=== PATIENT | female | born 1945 | race Caucasian/White ===

== ENCOUNTER → 2018-11-29 08:37 | Outpatient (CLI) | payer MEDICARE, SELFPAY ==
--- NOTE | 2018-11-29 08:45 | RAD_ITS ---
STUDY: X-RAY - RIGHT KNEE REASON FOR EXAM: Female, 73 years old. Pain TECHNIQUE: 4 view(s) of the knee. COMPARISON: None. FINDINGS: There is a small joint effusion. Mild joint space narrowing with osteophyte formation due to mild osteoarthritis. No acute displaced fracture, or traumatic subluxation based on current assessment.. No abnormal soft tissue calcifications. The soft tissue structures are unremarkable. RAD/Knee 4 or More Views IMPRESSION: Mild osteoarthritis. No acute displaced fracture, or traumatic subluxation based on current assessment. Electronically Signed: Fredis Peñaloza MD at 11:28 EDT Tel [phone], Service support ,
--- NOTE | 2018-11-29 08:57 | RAD_ITS ---
STUDY: X-RAY - LUMBAR SPINE REASON FOR EXAM: Female, 73 years old. Low back pain TECHNIQUE: 5 view(s) of the lumbar spine were obtained. COMPARISON: None FINDINGS: Normal lumbar lordosis. There is no substantial scoliosis. There is a normal alignment of the vertebrae. There is multilevel endplate spondylosis of the lumbar vertebrae. There is multi-level degenerative disc disease with multi-level disc space narrowing. There is no demonstrated fracture. There is no demonstrated spondylolysis of the pars interarticulares. There is atherosclerotic calcification of the abdominal aorta without a demonstrated aneurysm. RAD/L/S Spine Min 4 Views IMPRESSION: Degenerative changes of the spine, as detailed above. No acute displaced fracture, or traumatic subluxation based on current assessment. Electronically Signed: Fredis Peñaloza MD at 11:23 EDT Tel [phone], Service support ,
[2018-11-29 10:00] LABS: Color, Urine Yellow (Yellow); Glucose, Dipstick Normal (Normal); Ketone-Dipstick Negative (Negative); Leukocyte Esterase-Dipstick 100 /ul (Negative); Nitrite-Dipstick Negative (Negative); Occult Blood-Urine 10 /ul (Negative); Protein-Dipstick 30 mg/dl (Negative); Urine Bilirubin Dipstick Negative (Negative); Urine Clarity Sl. Cloudy (Clear); Urine Urobilinogen Normal (Normal)
[2018-11-29 10:02] LABS: Erythrocyte Sedimentation Rate 14 mm/hr (0-30)
[2018-11-29 10:04] LABS: Absolute Lymphocyte Count 1.25 X10^3/uL (0.83-4.51); Absolute Neutrophil Count 2.8 X10^3/uL (2.0-7.7); Basophil# 0.03 X10^3/uL; Basophil% 0.7 % (0-1); Eosinophil# 0.07 X10^3/uL; Eosinophils% 1.5 % (0-5); Hematocrit 36.8 % (37-47); Hemoglobin 12.4 g/dL (12.0-15.0); Lymphocyte # 1.25 X10^3/ul (4.0); Lymphocyte % 27.5 % (19-41); Mean Corp Hgb Conc 33.7 g/dL (32-36); Mean Corpuscular Volume 95.1 fL (81-99); Mean Platelet Vol. 9.1 fl (6.2-12.0); Monocyte% 8.8 % (0-10); NRBC Flagged by Analyzer 0 % (0-5); Neutrophil # 2.78 X10^3/uL (2.7-7.7); Neutrophil % 61.3 % (47-70); Platelet Count 202 K/mm3 (150-450); RBC Distribution Width CV 12.1 % (11.6-14.6); RBC Distribution Width SD 41.7 fl (35.1-43.9); Red Blood Count 3.87 M/mm3 (4.2-5.4); White Blood Count 4.5 K/mm3 (4.4-11.0)
[2018-11-29 10:22] LABS: Bacteria 1+ /hpf (None Seen); Red Blood Cells-Urine 0-5 SEEN /hpf (0-5); Squamous Epithelial Cells - UA 5-10 SEEN /hpf (5-10); White Blood Cells 10-25 SEEN /hpf (0-5)
[2018-11-29 10:23] LABS: Mucous, Urine 1+ /hpf (<or=2+); Vitamin B12 596 pg/mL (211-911); Vitamin D,25 Hydroxy 27.9 ng/mL (29.95-100.01)
[2018-11-29 10:41] LABS: ALB/GLOB Ratio 0.9 RATIO (0.9-2.4); AST(SGOT) 28 U/L (15-37); Alanine Aminotransfer ALT/SGPT 41 U/L (13-56); Albumin, Serum 3.6 g/dL (3.2-5.0); Alkaline Phosphatase 102 U/L (45-117); Anion Gap 6 (5-15); BUN 14 mg/dL (7-18); BUN/Creat Ratio 16.8 RATIO (10-20); CPK Total, Creatine Kinase 122 U/L (26-192); CRP < 2.90 mg/L (0.0-3.0); Calcium,Total 8.7 mg/dL (8.5-10.1); Chloride 107 mmol/L (98-107); Cholesterol 140 mg/dL (200); Creatinine, Serum 0.83 mg/dL (0.55-1.02); EST Glomerular Filtration Rate 72 mL/min (>60); Est Glom Filt Rate - Afr Amer 87 mL/min (>60); Glucose 135 mg/dL (74-106); High Density Lipoprotein 41 mg/dL; Microalbumin,Random Urine 15.1 mg/L (NO RANGE EST.); Microalbumin:Creatinine Ratio 6.7 mg/g CRE (<30 mg/g CRE); Potassium 3.8 mmol/L (3.5-5.1); Protein, Total 7.6 g/dL (6.4-8.2); Sodium Level 140 mmol/L (136-145); T4 Free Direct 0.81 ng/dL (0.76-1.46); Thyroid Stim Hormone (TSH) 4.19 uIU/mL (0.358-3.74); Triglycerides 220 mg/dL; Very Low Density Lipoprotein 44 mg/dL (5-40)
[2018-11-29 11:07] LABS: Hemoglobin A1c 7.1 % (4.2-6.3)
== END ==
PROVIDERS: Family Provider Family Medicine; PCP Family Medicine; Referring Provider Family Medicine; Visit Provider Family Medicine
DX: E11.9 Type 2 diabetes mellitus without complications (principal); E78.5 Hyperlipidemia, unspecified; M81.0 Age-related osteoporosis without current pathological fracture; R79.89 Other specified abnormal findings of blood chemistry; Z51.81 Encounter for therapeutic drug level monitoring; R53.83 Other fatigue; R53.1 Weakness; M54.9 Dorsalgia, unspecified; M25.561 Pain in right knee
CPT/HCPCS: 36415; 72110; 73564; 80053; 80061; 81001; 82043; 82306; 82550; 82570; 82607; 83036; 84439; 84443; 85025; 85652; 86140

== ENCOUNTER → 2018-12-18 06:24 | Outpatient (CLI) | payer MEDICARE, SELFPAY ==
--- NOTE | 2018-12-21 15:27 | STRESSREP_ITS ---
Stress Test Report Date: 12/18/2018 Procedure: Pharmacologic stress nuclear imaging study Indications: Dyspnea on exertion Consent: Per the patient Procedure: The patient underwent pharmacologic (Regadenoson) evaluation with a peak heart rate of 94 beats per minute (63 %predicted maximal heart rate) and a peak blood pressure of 130/78 mmHg. The baseline ECG demonstrated normal sinus rhythm nonspecific ST-T changes. EKG during lexiscan infusion revealed no significant change from baseline. EKG post infusion revealed no significant change from baseline [There were no cardiac dysrhythmias pretest, during pharmacologic infusion, or recovery]. [There was no complaint of chest discomfort during pharmacologic infusion or recovery]. The examination was discontinued secondary to completion of protocol. Impression: 1. Lexiscan stress test test is negative for Lexiscan infusion induced EKG changes of ischemia. 2. Lexiscan stress test test is negative for Lexiscan infusion induced chest pain. 3. Results of the nuclear portion of the test is as below Myocardial perfusion imaging study: Technique: The patient was injected with 11.4 millicuries of technetium 99m Cardiolite and subsequently rest SPECT Cardiolite nuclear imaging was obtained in the horizontal long, vertical long, and short axis views. The patient underwent pharmacologic (Regadenoson) evaluation. Please see above for details. The patient was injected with [34.5] millicuries of technetium 99m Cardiolite and subsequently stress SPECT Cardiolite nuclear imaging was obtained in the horizontal long, vertical long, and short axis views. A gated Cardiolite study at peak stress was obtained. Interpretation: Rest and stress SPECT Cardiolite nuclear imaging status post realignment, normalization, and attenuation correction demonstrate normal myocardial radioisotope uptake on rest and stress images. Gated images reveal no significant regional wall motion abnormalities. The reported LVEF is 67 %. Impression: 1. There is no evidence of significant ischemia or infarction. 2. Estimated ejection fraction is 67%. This note was generated with [employer] software. It may contain incorrect words, spelling, and punctuation that were not noted in checking the note before signing.
== END ==
PROVIDERS: Family Provider Family Medicine; PCP Family Medicine; Referring Provider Family Medicine; Visit Provider Family Medicine
DX: R07.9 Chest pain, unspecified (principal); R06.00 Dyspnea, unspecified; R53.83 Other fatigue
CPT/HCPCS: 78452; 93017; A9500; A4216; J2785

== ENCOUNTER 2019-03-24 07:16 | Emergency (ER) | payer MEDICARE, SELFPAY ==
[2019-03-11 13:53] VITALS: BMI 36.7
[2019-03-24 07:17] VITALS: BP 165/81; PULSE 85; RESP 20; TEMP 36.6; O2SAT 97; BMI 37.3
[2019-03-24 07:40] VITALS: BP 165/81; PULSE 85; RESP 20; TEMP 36.6; O2SAT 97
--- NOTE | 2019-03-24 07:41 | RAD_ITS ---
STUDY: X-RAY CHEST REASON FOR EXAM: Female, 73 years old. Chest pain and cough. TECHNIQUE: 2 view chest. COMPARISON: None. FINDINGS: No evidence of pneumonia, pulmonary edema, pneumothorax or pleural effusion. Cardiac silhouette, hilar and mediastinal contours with no acute findings. Heart size normal. Atherosclerosis of the thoracic aorta. Degenerative osseous changes with no acute osseous abnormality. RAD/Chest PA and Lateral IMPRESSION: No acute findings. Electronically Signed: Aaron Barrios, at 9:15 EST Tel , Service support ,
[2019-03-24 07:55] LABS: Bacteria 0 SEEN /hpf (None Seen); Mucous, Urine 0 SEEN /hpf (<or=2+); Red Blood Cells-Urine 0 SEEN /hpf (0-5)
[2019-03-24 07:57] LABS: Color, Urine Yellow (Yellow); Glucose, Dipstick 100 mg/dl (Normal); Ketone-Dipstick Negative (Negative); Leukocyte Esterase-Dipstick 500 /ul (Negative); Nitrite-Dipstick Negative (Negative); Occult Blood-Urine Negative /ul (Negative); Protein-Dipstick 30 mg/dl (Negative); Specific Gravity, Urine 1.015 (1.002-1.030); Urine Bilirubin Dipstick Negative (Negative); Urine Clarity Clear (Clear); Urine Urobilinogen Normal (Normal)
[2019-03-24 08:05] LABS: Squamous Epithelial Cells - UA 0-5 SEEN /hpf (5-10); White Blood Cells 5-10 SEEN /hpf (0-5)
--- NOTE | 2019-03-24 08:08 | ED.DCSUM_ITS ---
History of Present Illness Chief Complaint: Cough Informant: Patient Onset: Days Maximum Severity: Mild Narrative: Dry cough for days seen at [facility] [place] started on prednisone and inhaler reports she has persistence of the cough, and now she has right ear pain no nausea or vomiting no fever no shortness of breath no orthopnea or PND she has diabetes is well controlled, she has no history of NH PE or DVT when she is not coughing she states she feels baseline Past Medical History - Allergies and Home Meds Allergies/Adverse Reactions: Allergies No Known Allergies Allergy (Verified 03/24/19 07:16) Primary Care Physician: Luis Alberto Mccarty DO [Primary Care Provider] - Past Medical History: - - Diabetes and as above Smoking Status: Unknown if ever smoked Review of Systems General: Denies: Chills, Fever, Sweats Eyes: Denies: Visual changes - bilaterally, Diplopia ENT: Reports: Right ear pain, Rhinorrhea. Denies: Sore throat Cardiovascular: Denies: Chest pain, Palpitations Respiratory: Reports: Cough. Denies: Dyspnea, Dyspnea on exertion Gastrointestinal: Denies: Abdominal pain, Nausea, Vomiting, Diarrhea, Melena, Hematochezia Genitourinary: Denies: Dysuria, Hematuria, Frequency Musculoskeletal: Denies: Back pain, Extremity Pain Skin: Denies: Rash, Wounds Neurological: Denies: Headache, Weakness, Numbness Physical Exam Vital Signs/Narrative: Vital Signs Temp Pulse Resp BP Pulse Ox 03/24/19 07:40 97.8 F 85 20 H 165/81 H 97 03/24/19 07:17 97.8 F 85 20 H 165/81 H 97 General: Well nourished, Well developed, No Acute Distress Head: Normocephalic, Atraumatic Eyes: Perrl, EOMI ENT: Moist mucous membranes, No rhinorrhea, - - She does have redness around involving the right TM does have a dry harsh cough here Neck: Supple, Nontender, - Cardiovascular: Regular rate, Regular rhythm, No murmurs Respiratory: No distress, CTA bilaterally, Chest nontender Abdomen: Soft, Nontender, Nondistended, Normal bowel sounds Back: Nontender, Normal Inspection Extremities: Nontender, No edema Skin: Normal color, No rash Neurological: Alert, Oriented x3, Cranial nerves II-XII grossly intact, Normal Strength, Normal Sensation Psychological: Normal affect, Normal Mood Diagnostic/Tx/Re-eval - Medical Decision Making Her vital signs are within normal range her pulse ox is 98% on room air she is resting company in the bed she does have a dry cough she appears to have otitis media and the ear pain began this morning she is been coughing since about she thinks, at this time chest x-rays obtained its unremarkable explained above to her she will be started on Levaquin which should assist with the ear and if she has a bacterial cause to her cough and she will follow-up with her outpatient providers tomorrow, she will continue all of the other medications she was given the other day by her outpatient providers and return for change in symptoms she is comfortable with this plan, please note she did not receive flu vaccination this year Home stable Final impression right otitis media, URI with cough ED Disposition - Plan for ED Patient: Diagnosis: Otitis media Instructions: BRONCHITIS, Antiobiotic Treatment (Adult), Otitis Media (Middle- Ear Infection) in Adults Prescriptions: levoFLOXacin tablet [Levaquin tablet] 750 mg PO DAILY #7 tab Prescription Printed Referrals: Luis Alberto Mccarty DO [Primary Care Provider] -
[2019-03-24] MEDS: levoFLOXacin 750 MG Tablet PO (08:23)
[2019-03-24 08:40] VITALS: BP 155/71; PULSE 78; RESP 16; TEMP 36.8; O2SAT 98
[2019-03-24 09:00] VITALS: BP 155/71; PULSE 78; RESP 16; TEMP 36.8; O2SAT 98
== END 2019-03-24 09:26 | disposition home or self-care (01) ==
LOC: ED 07:49
PROVIDERS: Emergency Provider Emergency Medicine; Family Provider Family Medicine; PCP Family Medicine
DX: H66.91 Otitis media, unspecified, right ear (principal); E11.9 Type 2 diabetes mellitus without complications; R05 Cough
CPT/HCPCS: 71046; 81001; 99283; A4216

== ENCOUNTER → 2019-05-23 12:55 | Outpatient (CLI) | payer MEDICARE, SELFPAY ==
[2019-05-10 11:51] VITALS: BMI 37.3
--- NOTE | 2019-05-23 12:55 | MRI_ITS ---
STUDY: MRI RIGHT KNEE REASON FOR EXAM: Knee pain for one year, evaluate meniscal tear. TECHNIQUE: Standardized fat and water weighted pulse sequences were obtained in all 3 orthogonal planes. COMPARISON: Radiographs 11/29/2018. FINDINGS: There is a complex tear of the posterior horn/body of the medial meniscus (proton density sagittal images 25-33; proton density coronal images 15-18) with a small displaced fragment in the medial gutter (T2 coronal images 18, 19). There is peripheral subluxation of the medial meniscus. There is arthrosis of the medial femorotibial compartment with chondral thinning (T2 coronal image 17). There is mild subchondral bone edema of the medial tibial plateau (T2 coronal images 15-19), a stress phenomenon. Normal medial collateral ligamentous complex (MCL). Normal distal semimembranosus, gracilis and semitendinosus tendons. Normal lateral meniscus. Normal hyaline cartilage of the lateral femorotibial compartment. Normal lateral femoral condyle and tibial plateau. Normal proximal tibiofibular articulation. Normal lateral collateral (fibular) ligament. Normal popliteus tendon. Normal biceps femoris tendon. There is mild intrasubstance mucoid degeneration of the anterior cruciate ligament (T2 axial image 14). Normal posterior cruciate ligament (PCL). Normal congruent patellofemoral articulation. Normal hyaline cartilage of the patellofemoral compartment. Normal medial and lateral patellar retinaculum. Normal quadriceps tendon. Normal patellar tendon. Normal Hoffa''s fat pad. There is a minimal volume of fluid in the knee joint. There is a small popliteal cyst (T2 sagittal images 15-17). There is a small ganglion cyst adjacent to the origin of the lateral gastrocnemius (T2 sagittal image 8) measuring 0.7 cm in length. There is mild edema in the subcutis adipose space. The otherwise visualized osseous structures are unremarkable. MRI/Lower Ext Joint Only (Routine) IMPRESSION: Medial meniscal tear. Arthrosis of the medial femorotibial compartment. Mild subchondral bone edema of the medial tibial plateau, a stress phenomenon. Small popliteal cyst. Small ganglion cyst adjacent to the origin of the lateral gastrocnemius. Electronically Signed: Chris Novak MD at 14:11 EST Tel , Service support ,
== END ==
PROVIDERS: PCP Family Medicine; Referring Provider Orthopaedic Surgery; Visit Provider Orthopaedic Surgery
DX: S83.206A Unspecified tear of unspecified meniscus, current injury, right knee, initial encounter (principal)
CPT/HCPCS: 73721

== ENCOUNTER → 2019-07-13 09:04 | Outpatient (CLI) | payer MEDICARE, SELFPAY ==
[2019-06-12 13:29] VITALS: BMI 37.3
[2019-07-13 09:54] LABS: AST(SGOT) 24 U/L (15-37); Alanine Aminotransfer ALT/SGPT 32 U/L (13-56); Albumin, Serum 3.7 g/dL (3.2-5.0); Alkaline Phosphatase 117 U/L (45-117); Anion Gap 5 (5-15); BUN 14 mg/dL (7-18); BUN/Creat Ratio 16.9 RATIO (10-20); Calcium,Total 9.7 mg/dL (8.5-10.1); Chloride 104 mmol/L (98-107); Cholesterol 134 mg/dL (200); Creatinine, Serum 0.83 mg/dL (0.55-1.02); EST Glomerular Filtration Rate 72 mL/min (>60); Est Glom Filt Rate - Afr Amer 87 mL/min (>60); Globulin 3.8 g/dL (2.2-4.2); Glucose 156 mg/dL (74-106); High Density Lipoprotein 45 mg/dL; Potassium 4.3 mmol/L (3.5-5.1); Protein, Total 7.5 g/dL (6.4-8.2); Sodium Level 140 mmol/L (136-145); T4 Free Direct 0.75 ng/dL (0.76-1.46); Triglycerides 208 mg/dL; Very Low Density Lipoprotein 42 mg/dL (5-40)
[2019-07-13 10:51] LABS: Hemoglobin A1c 7.4 % (4.2-6.3)
== END ==
PROVIDERS: PCP Family Medicine; Referring Provider Family Medicine; Visit Provider Family Medicine
DX: E11.51 Type 2 diabetes mellitus with diabetic peripheral angiopathy without gangrene (principal); I70.0 Atherosclerosis of aorta; E78.5 Hyperlipidemia, unspecified; R79.89 Other specified abnormal findings of blood chemistry
CPT/HCPCS: 36415; 80053; 80061; 83036; 84439; 84443

== ENCOUNTER → 2019-08-08 13:56 | Outpatient (CLI) | payer MEDICARE, SELFPAY ==
[2019-06-12 13:29] VITALS: BMI 37.3
[2019-08-07 14:37] VITALS: BMI 37.3
--- NOTE | 2019-08-08 13:57 | CT_ITS ---
STUDY: CT SCAN LOWER EXTREMITY RIGHT REASON FOR EXAM: Female, 74 years old. SHRADDHA KNEE jimena RADIATION DOSAGE (If Supplied By Facility): CTDIvol = ( 30.70 ) mGy, DLP = ( 1886.87 ) mGycm. Individualized dose optimization techniques were used for this CT.? TECHNIQUE: Multiple axial tomographic images of the hip joint, knee joint and ankle joint were obtained for the SHRADDHA protocol. COMPARISON: None. FINDINGS: There is a moderate degree of joint space narrowing and osteoarthritis of the right hip joint. There is evidence of a spur along the inferior medial aspect of the acetabulum. There is also evidence of calcification overlying the greater trochanter suggestive of a tendinitis. There is a marked degree of the joint space narrowing of the medial compartment of the knee joint. No significant joint effusion is seen. At the level of the ankle joint, there is evidence of screw fixation of a remote medial malleolar fracture. There is good alignment. There is also evidence of a spur at insertion of the Achilles tendon as well as the plantar surface of the calcaneus. CT/Extremity Lower without Contra IMPRESSION: Marked degree of joint space narrowing involving the medial compartment of the knee joint as described. Degenerative changes of the right hip joint. Prior screw fixation of a medial malleolar fracture. Electronically Signed: Eduardo Antunez, at 15:40 EDT , Service support ,
== END ==
PROVIDERS: PCP Family Medicine; Visit Provider Orthopaedic Surgery
DX: M17.11 Unilateral primary osteoarthritis, right knee (principal)
CPT/HCPCS: 73700

== ENCOUNTER 2019-08-20 09:07 | Day surgery (SDC) | payer MEDICARE, SELFPAY ==
[2019-06-12 13:29] VITALS: BMI 37.3
[2019-08-13 08:24] VITALS: BMI 37.3
--- NOTE | 2019-08-14 12:25 | EKG12_ITS ---
Test Reason : PRE OP Blood Pressure : / mmHG Vent. Rate : 075 BPM Atrial Rate : 075 BPM P-R Int : 122 ms QRS Dur : 080 ms QT Int : 390 ms P-R-T Axes : 038 -03 039 degrees QTc Int : 435 ms Normal sinus rhythm Normal ECG Confirmed by RANDOLPH ALEXANDER ([id number]), assignment desk editor GENESIS BETTENCOURT ([id number]) on 08/19/2019 2:47:44 PM Referred By: Sotero Holden Confirmed By:RANDOLPH ALEXANDER
[2019-08-14 13:13] LABS: Hematocrit 38.8 % (37-47); Hemoglobin 12.6 g/dL (12.0-15.0); Mean Corp Hgb Conc 32.5 g/dL (32-36); Mean Corpuscular Hgb 31.5 pg (27.0-32.0); Mean Platelet Vol. 9.3 fl (6.2-12.0); Platelet Count 211 K/mm3 (150-450); RBC Distribution Width CV 11.4 % (11.6-14.6); RBC Distribution Width SD 40.4 fl (35.1-43.9); White Blood Count 5.2 K/mm3 (4.4-11.0)
[2019-08-14 13:44] LABS: Magnesium 2.1 mg/dL (1.6-2.6)
[2019-08-14 16:16] LABS: M R Staph aureus DNA By PCR Negative (Negative); Probe Check PASS; Specimen Processing Control PASS
[2019-08-20] VITALS (7 sets, daily range): BP systolic 101–119; BP diastolic 56–107; PULSE 64–741; RESP 16; TEMP 36.1–36.3; O2SAT 98–100; BMI 37.7
[2019-08-20 09:45] LABS: Magnesium 1.9 mg/dL (1.6-2.6)
[2019-08-20] MEDS: Celecoxib 200 MG Capsule 400 MG PO (09:49)
[2019-08-20] MEDS: Gabapentin 600 MG Tablet PO (09:50)
[2019-08-20] MEDS: Scopolamine 1mg/72hr Patch 1 PATCH TRANSDERM. (09:50)
[2019-08-20] MEDS: Acetaminophen 500 MG Tablet 1000 MG PO ×2 (09:50→14:34)
[2019-08-20] MEDS: Lactated Ringers 1,000 ML 100 ML IV (09:51)
[2019-08-20] MEDS: Cefazolin 2 GM in 0.9% Normal Saline 100 ML IV (10:24)
[2019-08-20 10:50] LABS: Bedside Glucose 132 mg/dL (70-110)
[2019-08-20] MEDS: Lactated Ringers 1,000 ML 125 ML IV (12:00)
[2019-08-20] MEDS: Bupivacaine Mpf 0.5% 30 ML VIAL (12:42)
[2019-08-20] MEDS: Epinephrine (1 mg/ml) 1 MG/ML VIAL (12:42)
[2019-08-20] MEDS: Betamethasone/Betamethasone 30 MG/5 ML Vial (12:42)
--- NOTE | 2019-08-20 13:28 | RAD_ITS ---
STUDY: X-RAY - RIGHT KNEE REASON FOR EXAM: Female, 74 years old. Post op TECHNIQUE: AP and lateral view(s) of the knee. COMPARISON: Comparison is made with prior study dated November 29, 2018. FINDINGS: The patient is status post medial hemiarthroplasty as well as prosthetic patella. There is good alignment. Postoperative soft tissue changes. RAD/Knee 1 or 2 Views IMPRESSION: Status post medial hemiarthroplasty as well as prosthetic replacement of the patella. There is good alignment. Postoperative soft tissue changes. Electronically Signed: Eduardo Antunez, at 14:21 EDT , Service support ,
--- NOTE | 2019-08-20 13:40 | HP.PCM_ITS ---
History and Physical Date of Admission: 08/20/19 Intake Intake Visit Reasons: right knee Chief Complaint: right knee Accompanied by: self Is patient in pain?: Yes Pain scale (1-10): 5 Allergies No Known Allergies Allergy (Verified 03/24/19 07:16) Medications atorvastatin 40 mg tablet 40 mg PO DAILY #90 tab 01/07/19 [History Confirmed 08/09/19] blood sugar diagnostic See Rx Instructions .ROUTE .MEDSUPPLY #400 ea 01/07/19 [History Confirmed 08/09/19] denosumab 60 mg/mL subcutaneous syringe SC #1 ml 01/07/19 [History Confirmed 08/09/19] lisinopril 2.5 mg tablet 2.5 mg PO DAILY #90 tab 01/07/19 [History Confirmed 08/09/19] paroxetine HCl 20 mg tablet 20 mg PO DAILY #90 tab 01/07/19 [History Confirmed 08/09/19] pramipexole 0.5 mg tablet 0.5 mg PO DAILY #90 tab 01/07/19 [History Confirmed 08/09/19] Benzonatate 100 mg PO TID PRN 03/24/19 [History Confirmed 08/09/19] Calcium Carbonate/Vitamin D3 [Calcium 600 + Vit D Tablet] 1 tab PO DAILY 03/24/19 [History Confirmed 08/09/19] levofloxacin 750 mg tablet 750 mg PO DAILY tab 06/12/19 [History Confirmed 08/09/19] albuterol sulfate 90 mcg/actuation aerosol inhaler 2 puff INHALATION Q6H PRN 08/01/19 [History Confirmed 08/09/19] aspirin 81 mg tablet,delayed release 81 mg PO DAILY 08/01/19 [History Confirmed 08/09/19] calcium carbonate 600 mg calcium (1,500 mg) tablet 600 mg PO DAILY 08/01/19 [History Confirmed 08/09/19] metformin 500 mg tablet 500 mg PO BID #180 tab 08/01/19 [History Confirmed 08/09/19] multivitamin 1 tab PO DAILY 08/01/19 [History Confirmed 08/09/19] ropinirole 0.5 mg tablet 0.5 mg PO DAILY 08/01/19 [History Confirmed 08/09/19] PFS Medical History (Updated 08/01/19 @ 11:16 by Regina Somers) Allergic rhinitis (Acute) DDD (degenerative disc disease), lumbar (Acute) DM w/o complication type II (Acute) Fatigue (Acute) Obesity (BMI 30.0-34.9) (Acute) Osteoporosis (Acute) Other and unspecified hyperlipidemia (Acute) Restless leg syndrome (Acute) Surgical History (Updated 08/01/19 @ 11:16 by Regina Somers) History of shoulder surgery (Resolved) Myringotomy tube(s) status (Resolved) Social History (Updated 08/09/19 @ 12:[address] Sotero Holden DO) Smoking Status: Never smoker alcohol intake: current alcohol intake frequency: holidays/special occasions only substance use type: does not use caffeine: Yes what type of physical activity do you participate in: none HPI right knee: Details: Parts of this documentation were recorded by a scribe, this documentation accurately reflects the service provided and the decisions made by Sotero lal DO 08/09/19 0755. TICO GONZALES is a 74 year old F here today for F/U on right knee pain. She is here for ROM check and to discuss right TKA. Patient has near full extension and is around 110 with flexion. Denies numbness, tingling or other associated symptoms. Continues to have mdial sided knee pain. States that this effects her ADLs. She can not stand for long periods, she is unable to walk long distances and she has difficulty with stairs. Her A1C was 7.4 on 07/13/2019. Her pain has been getting progressively worse and has been affecting her activities of daily living cannot do anything without pain Ortho Exam Right Knee Skin/Wound: No erythema, No ecchymosis, No swelling Homans Sign: No Knee ROM: No ROM-Extension -20 to 0, No ROM-Flexion 0-140 (110) Examination: Yes Med jt line tenderness, No Lat jt line tenderness Stability: NML: Anterior Drawer, NML: Posterior Drawer Patella Translation: 1 Apprehension with Lateral Translation: No KNEE: Some discomfort with patellar grind 8 DEGREE FLEXION CONTRACTURE a few punctate petechi on her left foot. Left Knee Patella Translation: 1 Supplemental Info 11/29/2018 x-ray right knee: mild to moderate medial joint space narrowing mild spurring medial and lateral compartment mild patellofemoral spurring 11/29/2018 x-ray lumbar spine: Multilevel endplate spondylosis of the lumbar spine multilevel degenerative disc disease mild Assessment & Plan Problems 1. Unilateral primary osteoarthritis, right knee M17.11 Plan Patient educated that her ROM has improved slightly since the last visit therefore she will be ok to have a partial knee replacement. Reviewed the pre- operative plans with the patient. Risks and benefits of the procedure were fully explained, including but not limited to infection, neurovascular injury, continued pain, arthritis, stiffness, need for further surgery, re-injury, DVT, PE, general risks of anesthesia, and loss of limb or life. Educated that if she has the partial the lateral side can eventually develop OA. The patient understands all the risks and does wish to proceed with written consent. Patient wishes to proceed with right knee unicompartmental medial knee arthroplasty vs bicompartmental knee arthroplasty vs total knee arthroplasty to be determined intra-operatively. Specifically reviewed the risk of COVID 19 infection and possible consequences of ventilation and . Due to the severity and progre ssion of symptoms and affecting her activities of daily living she does wish to proceed. this will be scheduled as a same-day surgery she understands this feels she has enough help at home. We have her set up for immediate outpatient physical therapy. Follow up in or sooner if pain, swelling, numbness or associated symptoms, or concerns develop. All questions answered. Patient in agreement of plan. Coding Level of Care Code Off vis,est,level 3 Diagnoses Unilateral primary osteoarthritis, right knee M17.11 I have re-examined the patient. There are no clinical changes since date of exam Essential Procedure Criteria Procedure Essential: Yes Criteria Note: severe worsening symptoms affecting activities of daily living Risk to Patient if Procedure Delayed: Presence of severe symptoms causing an inability to perform ADL's
--- NOTE | 2019-08-20 13:42 | DCINST_ITS ---
Discharge Diet: No Restrictions Additional Instructions: Ice and elevate next week while not ambulating. Encourage ambulation weightbea ring as tolerated. Encourage FULL knee extension and flexion 1 time EVERY time you get up and down and MULTIPLE times per day. Begin showering postop day #3. Remove the dressing prior to shower gently wash with warm water and antibacterial soap then pat dry place ABD pad and ANU hose over top. This is to be done daily. do not submerge for 3 weeks. If not showering daily must clean incision and change dressing daily. Do not allow animals near incision keep clean. Follow anticoagulation recommendations. Start physical therapy as directed first physical therapy session is 08/23/2019 at 2:00 at the [facility] [place]. call Dr. Holden with any concerns. Allergies/Adverse Reactions: Allergies No Known Allergies Allergy (Verified 08/13/19 10:49) Medications to take at Discharge atorvastatin 40 mg tablet 40 mg PO DAILY #90 tab 01/07/19 denosumab 60 mg/mL subcutaneous syringe 60 mg SC QMONTH #1 ml 01/07/19 lisinopril 2.5 mg tablet 2.5 mg PO DAILY #90 tab 01/07/19 paroxetine HCl 20 mg tablet 20 mg PO DAILY #90 tab 01/07/19 pramipexole 0.5 mg tablet 0.5 mg PO DAILY #90 tab 01/07/19 Calcium Carbonate/Vitamin D3 [Calcium 600 + Vit D Tablet] 1 tab PO DAILY 03/24/19 multivitamin 1 tab PO DAILY 08/01/19 Acetaminophen/Diphenhydramine [Tylenol Pm Ex-Strength Caplet] 1 ea PO QHS 08/13/19 metformin 500 mg tablet 500 mg PO BID #180 tab 08/13/19 omeprazole 20 mg capsule,delayed release 20 mg PO DAILY PRN 08/13/19 Acetaminophen [Tylenol Extra Strength] 1,000 mg PO Q6H PRN #100 tab 08/20/19 Apixaban [Eliquis] 2.5 mg PO BID 15 Days #30 tab 08/20/19 Ondansetron HCl [Zofran] 4 mg PO Q6H PRN PRN 5 Days #20 tab 08/20/19 Oxycodone [Oxyir] 5 mg PO Q4H PRN PRN #60 tab 08/20/19 The following prescriptions were given: Apixaban [Eliquis] 2.5 mg PO BID 15 Days #30 tab Transmission Status: Sent to [facility] Oxycodone [Oxyir] 5 mg PO Q4H PRN PRN #60 tab PRN Reason: Pain Score 6-10/10 Transmission Status: Received by [facility] Acetaminophen [Tylenol Extra Strength] 1,000 mg PO Q6H PRN #100 tab Transmission Status: Sent to [facility] Ondansetron HCl [Zofran] 4 mg PO Q6H PRN PRN 5 Days #20 tab PRN Reason: Nausea Transmission Status: Sent to [facility] Primary Care Physician: Luis Alberto Mccarty DO [Primary Care Provider] - Test Results: Test results from this visit will be discussed in further detail at your follow- up appointment, if applicable. Please Follow Up With: Sotero Holden DO - 2 weeks
--- NOTE | 2019-08-20 13:44 | OP.PCM_ITS ---
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 CT robotic assisted medial unicompartmental knee arthroplasty. 2. CT robotic assisted patellofemoral arthroplasty Implants Vinicio Anesthesia: Spinal with adductor canal block EBL: 75 Tourniquet time 78 minutes at 300 mmHg Complications: None Condition: Stable to PACU Indication for procedure: 74-year-old female patient with ongoing DJD was failed conservative treatment who did have MRI evidence of medial compartment arthritis and to a lesser degree patellofemoral arthritis she has failed conservative treatment and wished to proceed with elective knee arthroplasty. We reviewed risk and benefits of you knee bicompartmental or total knee arthroplasty. risk benefits and alternatives were reviewed including risk of bleeding infection nerve, artery, bone, tissue damage, blood clot need for further surgery and continued pain. In addition we did review risk of COVID-19 contamination and potential consequences of respiratory failure and . Due to the patient's ongoing progressing worsening symptoms and significant limitations in her activity activity of daily living she wishes to assume this risk and proceed. Procedure: Patient was met in the preoperative holding area once again the operative extremity was identified by both patient and physician was marked. Preoperative CT was performed and we templated for both unicompartmental knee arthroplasty as well as patellofemoral and total knee arthroplasty in preparation for the case. Patient was brought back to the operating room spinal anesthesia was started she was positioned on the operating room table in the supine position. A bump was placed under the right hip a well-padded tourniquet was placed on the operative thigh. Patient was prepped and draped in the usual sterile fashion and a timeout was called to ensure the proper patient procedure and extremity are being contemplated. An Esmarch was used to exsanguinate the extremity and the tourniquet was inflated to 300 mmHg. A standard midline incision was carried down through the skin and subcutaneous tissue letter cautery was used to obtain meticulous hemostasis as well as a aqua mantis device a deep blade scalpel was used to make a medial parapatellar arthrotomy and the knee was brought in full extension evaluation was performed of the patellofemoral and lateral compartments although the lateral compartment was free of cartilage pathology the patellofemoral compartment did have cartilage wear particularly on the medial patellar facet full-thickness it was determined to go ahead and proceed with a patellofemoral as well as a unicompartmental knee arthroplasty but to leave the lateral compartment intact. At this point a intro wound femoral array was placed from the medial femoral condyle and a 45 degree angle and a tibial array was placed through stab incisions in the shaft of the tibia. Femoral and tibial checkpoints were inserted and the case proceeded with calibration checkpoints this was performed we then determined the limb alignment which natively was 5 degrees of varus and stress the medial collateral ligament in various flexion poses which were captured to allow for proper positioning and planning on our monitors of the implants be also captured cartilage transition checkpoints to assure that there was flush transition with the implants and the remaining cartilage once this was performed and balancing was achieved we then brought in the robotic arm with the bur attached and buried the appropriate spaces for our implants once this was completed the remainder of the medial meniscus was excised the knee was thoroughly irrigated posterior capsular injection was performed and trials were inserted there was excellent patellar tracking we did use a patellar reamer for the undersurface of the patella with an asymmetric polyethylene. Once trials were deemed satisfactory and the knee was proved balance once again we remove the trials thoroughly irrigated and drained the knee and cemented the actual components in place removing excess cement with curettes and Angel Fire's in the knee in full extension until the cement hardened and then thoroughly irrigated irrigating the knee with an Aricept rinse allowing it to sit for a few minutes and irrigating again with sterile irrigation and closing the capsule with #1 [id number] Ethibonds followed by 0 Vicryl and 2-0 Vicryl in the subcutaneous tissue followed by carolee in the skin followed by Mepilex dressing followed by a thigh-high ANU hose
[2019-08-20 13:56] LABS: Bedside Glucose 119 mg/dL (70-110)
[2019-08-20] MEDS: Cefazolin 1 GM/50 ML BAG IV (14:07)
== END 2019-08-20 16:33 | disposition home or self-care (01) ==
LOC: SDC 09:08 → AC 09:09
PROVIDERS: Anesthesiology; PCP Family Medicine; Referring Provider Orthopaedic Surgery; Visit Provider Orthopaedic Surgery
PROC: 0SRC0JZ Replacement of Right Knee Joint with Synthetic Substitute, Open Approach (ICD-10-PCS; CPT 27447; principal; 2019-08-20 10:00)
DX: M17.11 Unilateral primary osteoarthritis, right knee (principal); Z79.82 Long term (current) use of aspirin; Z79.84 Long term (current) use of oral hypoglycemic drugs; E11.9 Type 2 diabetes mellitus without complications; E78.00 Pure hypercholesterolemia, unspecified; I10 Essential (primary) hypertension; Z87.891 Personal history of nicotine dependence
CPT/HCPCS: 01402; 27447; 64447; 36415; 73560; 82962; 83735; 85027; 87641; 93005; 97162; 97166; C1776; J7120; J0702

== ENCOUNTER 2019-10-08 05:54 | Day surgery (SDC) | payer MEDICARE, SELFPAY ==
[2019-10-02 10:19] VITALS: BMI 37.7
[2019-10-08] VITALS (7 sets, daily range): BP systolic 135–155; BP diastolic 66–89; PULSE 66–71; RESP 16–18; TEMP 36.2–36.7; O2SAT 96–100; BMI 36.1
[2019-10-08] MEDS: Lactated Ringers 1,000 ML 100 ML IV (06:40)
[2019-10-08 07:00] LABS: Bedside Glucose 111 mg/dL (70-110)
[2019-10-08] MEDS: Cefazolin 2 GM in 0.9% Normal Saline 100 ML IV (07:19)
--- NOTE | 2019-10-08 07:25 | HP.PCM_ITS ---
History and Physical Date of Admission: 10/08/19 Intake Vital Signs 10/02/19 BMI 37.7 Intake Visit Reasons: RIGHT KNEE Is patient in pain?: Yes Allergies No Known Allergies Allergy (Verified 10/02/19 10:11) [facility] Social History (Updated 10/02/19 @ 10:[address] Sotero Holden DO) Smoking Status: Former smoker alcohol intake: current alcohol intake frequency: holidays/special occasions only substance use type: does not use caffeine: Yes what type of physical activity do you participate in: none HPI RIGHT KNEE: Details: Parts of this documentation were recorded by a scribe, this documentation accurately reflects the service provided and the decisions made by me, Dr. Sotero Holden DO 10/02/19 0753. TICO GONZALES is a 74 year old F here today for s/p CT robotic assisted medial unicompartmental knee arthroplasty and CT robotic assisted patellofemoral arthroplasty dos 08/20/19. Patient states that she continues to have pain and stiffness. Her pain comes and goes. She has shooting pain over her medial knee at times. Patient is currently in physical therapy and continues to have limited knee range of motion. Patient notes that she has pain over her anterior knee. She denies any pain medications. Patient denies any swelling. ROS Musc Reports joint pain, Denies joint swelling, Reports stiffness Skin/Breast Reports system reviewed and no additional complaints, except as docu Neuro Yes system reviewed and no additional complaints, except as docu Ortho Exam Right Knee Skin/Wound: Yes healed, No erythema, No ecchymosis, No swelling Homans Sign: No Knee ROM: No ROM-Extension -20 to 0 (7), Yes ROM-Flexion 0-140 (78) Examination: Yes Med jt line tenderness Stability: NML: Valgus 0, NML: Valgus 30 Patella Translation: 1 Apprehension with Lateral Translation: No Patella Grind: No Left Knee Patella Translation: 1 Assessment & Plan Problems 1. Stiffness of right knee M25.661 2. Orthopedic aftercare Z47.89 3. Arthrofibrosis of total knee replacement, subsequent encounter T84.82XD Plan Spoke with the patient about the benefits of a JAYY due to her knee stiffness and any risks. Patient agreed to the procedure. She will have increased soreness following the procedure. Patient needs to do formal physical therapy more than once a week due to stiffness. She should ice her knee for 72 hours post op. Follow up in 4wk or sooner if pain, swelling, numbness or associated symptoms, or concerns develop. All questions answered. Patient in agreement of plan. Medications New: [handicap placard] 6 mo; 1 unit 0RF Coding Level of Care Code Global Post Op Diagnoses Stiffness of right knee M25.661 Orthopedic aftercare Z47.89 Arthrofibrosis of total knee replacement, subsequent encounter T84.82XD ??Encounter type: subsequent encounter I have re-examined the patient. There are no clinical changes since date of exam Procedure Criteria Procedure Type: Elective COVID Risk Discussion: The surgeon/proceduralist and patient have discussed in detail the risk of exposure to and/or potential harm posed by the COVID-19 virus with having a surgery/procedure at this time versus the risk of delaying the surgery/procedure. It is not possible to know either the risk of delaying the surgery or procedure or chance of getting an infection with perfect accuracy, but a joint decision was made between the patient and the surgeon/proceduralist to proceed at this time with the scheduled surgery/procedure as indicated on the consent form.
[2019-10-08] MEDS: MethylPREDNISolone Acetate 80 MG/ML Vial (07:27)
[2019-10-08] MEDS: Bupiv/Epi 0.25% 30 ML Vial (07:27)
--- NOTE | 2019-10-08 07:29 | PCM.OPRPT ---
Report of Operation Date of Procedure: 10/08/19 Description of Surgical Findings:: Preoperative diagnosis: Arthrofibrosis right knee Postoperative diagnosis: Same Procedure: Manipulation under anesthesia with intra-articular steroid injection Anesthesia: General EBL: None Complications: None Condition: Able to PACU Indication for procedure: This is a 74-year-old female who underwent bicompartmental knee arthroplasty medial and patellofemoral 6 weeks ago who is failed to gain her range of motion wish to undergo an elective manipulation under anesthesia to increase range of motion. risk benefits and alternatives were reviewed including risk of bleeding infection nerve, artery, bone, tissue damage, blood clot need for further surgery and continued pain. Procedure: Patient was met in the preoperative holding area once again the operative extremity was identified by both patient and physician and was marked. Patient was brought back to the operating room anesthesia was started. A timeout was called into the proper patient procedure and extremity were being contemplated. The operative range of motion was lacking 5 degrees extension and achieving 75 degrees flexion. After patient was adequately anesthetized extension manipulation was performed followed by patellar mobilization followed by gradual flexion scar tissue was palpated being released with no concerning signs for tendon rupture or fracture. Postoperative range of motion was much improved with near full extension and 125 degrees of flexion. Following the manipulation using sterile technique from the superior lateral position an intra-articular injection with 40 mg of depomedrol and 8 cc 0.25%marcaine with epi was injected. bandaid applied
--- NOTE | 2019-10-08 07:30 | DCINST_ITS ---
Discharge Diet: No Restrictions Weight Bearing Status: Weight bearing as tolerated Keep extremity elevated above heart level: Operative Extremity Call your doctor if you observe: Shortness of breath, Chest pain Additional Instructions: Weightbearing as tolerated. Encourage full knee extension and flexion immediately. Resume physical therapy immediately. Pain medication as prescribed. May shower. Call with any concerns. Allergies/Adverse Reactions: Allergies No Known Allergies Allergy (Verified 10/03/19 09:01) Medications to take at Discharge atorvastatin 40 mg tablet 40 mg PO DAILY #90 tab 01/07/19 denosumab 60 mg/mL subcutaneous syringe 60 mg SC QMONTH #1 ml 01/07/19 lisinopril 2.5 mg tablet 2.5 mg PO DAILY #90 tab 01/07/19 paroxetine HCl 20 mg tablet 20 mg PO DAILY #90 tab 01/07/19 pramipexole 0.5 mg tablet 0.5 mg PO QHS #90 tab 01/07/19 Calcium Carbonate/Vitamin D3 [Calcium 600 + Vit D Tablet] 1 tab PO DAILY 03/24/19 multivitamin 1 tab PO DAILY 08/01/19 Acetaminophen/Diphenhydramine [Tylenol Pm Ex-Strength Caplet] 1 ea PO QHS 08/13/19 metformin 500 mg tablet 500 mg PO BID #180 tab 08/13/19 omeprazole 20 mg capsule,delayed release 20 mg PO DAILY PRN 08/13/19 Acetaminophen [Tylenol Extra Strength] 1,000 mg PO Q6H PRN #100 tab 08/20/19 Primary Care Physician: Luis Alberto Mccarty DO [Primary Care Provider] - Test Results: Test results from this visit will be discussed in further detail at your follow- up appointment, if applicable. Please Follow Up With: Sotero Holden DO - 4 weeks
[2019-10-08 08:00] LABS: Bedside Glucose 129 mg/dL (70-110)
[2019-10-08] MEDS: Acetaminophen 500 MG Tablet PO (08:44)
[2019-10-08] MEDS: oxyCODONE 5 MG Tablet PO (08:44)
== END 2019-10-08 09:04 | disposition home or self-care (01) ==
LOC: SDC 05:57 → AC 05:57
PROVIDERS: Anesthesiology; PCP Family Medicine; Referring Provider Orthopaedic Surgery; Visit Provider Orthopaedic Surgery
PROC: (CPT 27570; principal; 2019-10-08 07:25)
DX: T84.82XD Fibrosis due to internal orthopedic prosthetic devices, implants and grafts, subsequent encounter (principal); Z87.891 Personal history of nicotine dependence; I10 Essential (primary) hypertension; K21.9 Gastro-esophageal reflux disease without esophagitis; E78.00 Pure hypercholesterolemia, unspecified; E11.9 Type 2 diabetes mellitus without complications; Z47.89 Encounter for other orthopedic aftercare
CPT/HCPCS: 01380; 20552; 27570; 82962; 87635; G2023; J7120; J2405; U0003

== ENCOUNTER 2019-11-18 14:00 | Outpatient (RCR) | payer MEDICARE, SELFPAY ==
[2019-08-07 14:37] VITALS: BMI 37.3
[2019-08-13 08:24] VITALS: BMI 37.3
--- NOTE | 2019-08-26 08:48 | HP.PTEVAL_ITS ---
Patient's Visit Information TICO GONZALES is a 74 year old F referred to Physical Therapy by Dr. Sotero Holden DO with a diagnosis of R TKA. Date of Evaluation: 08/23/19 Physical Therapist: Devyn Duke DPT - Visit Plan Frequency: 3x /Week Duration: 6 Weeks Plan: 1) Start with ROM, focus on TKE and progressing flexion, Consider bike, heel slides, manual flexion stretching. 2) Edema/pain control as needed. 3) walking progressing initially with FWW, progressing to least restrictive device as able. 4) Initiate quad, HS, glute medius strengthening- progressing tissue load pending tolerance. 5) functional strengthening once tolerating better. May progress with above plan as patient tolerates. ROM needs to be focus initially. - Subjective Pt. is here today for her initial evaluation with diagnosis of R TKA DOS: 08/20/19. Surgery was completed adn she left the same day. Pt. is retired, but does enjoy recreational walking, and traveling. Pt. arrives today with her grand daughter who has been helping her out at home. She arrives today using FWW, bandage in place and wearing her stockings. She reports being HEP compliant without issues, pain with heel slide exercise. Pt. denies N/T, no calf pain, no fever/chills. Pt. has been taking her pain medication as prescribed. Pt. is hopeful to get back to all recreational walking and taveling without limitations. - Pain R knee Pain Intensity (Out of 10): 3 Pain Intensity Range: 2, 7 - Objective POSTURE: Pt. has increased wt. shift to L LE. Pt. tands to stand wtih slight L knee flexion. Uses FWW for stability. PALPATION: Pt. has no signs of infection. Pt. has bandage still intact to take off tomorrow. Pt. has negative howmans sign. NEURO: normal throughout. ROM: R knee 0-5-90deg PROM,AROM- 0-8-85deg. MMT: LLE- 5/5 throughout; RLE- ankle 5/5 throughout; knee- 3+/5; hip 4/5. GAIT: Pt. ambulates wtih FWW with improved tolerance with Wbing. Pt. has dereased TKE and deminished he flexion. STAIRS: Step to pattern wtih use of BHR. - Goals Goal 1:: LTG: PT. to be I with HEP. Goal Time Frame: 6-8 Weeks Goal 2:: STG: Pt. to sleep throughout the night without increase in symptoms. Goal Time Frame: 4-6 Weeks Goal 3:: LTG: Pt. to ambulate without AD unlimited distances with normal gait pattern. Goal Time Frame: 6-8 Weeks Goal 4:: STG: pt. to have 0-0-120deg of R knee ROM. Goal Time Frame: 4-6 Weeks Goal 5:: LTG: Pt. to negotite 1 flight of steps with 1 HR with reciprocal pattern. Goal Time Frame: 6-8 Weeks Goal 6:: LTG: pt. to have increased RLE strength by 1/2 grade of all effected musculature. - Rehabilitation Potential Physical Therapy Diagnosis: Pt. has signs and symptoms consistent with R TKA. Pt. has subsequent hypomobility, weakness, increased pain, and difficulty with walking. Pt. would benefit from PT to address above limitations progressing with plan as tolerated. Focus needs to be ROM initially, adding in strengthening and functional mobility as tolerated. Rehabilitation Potential: Excellent - Anticipated Interventions Patient/Client Instruction: Educate patient on: Condition, Plan of Care, Risk Factors, Benefits of Fitness Program For the Purpose of:: To foster healthy habits, To improve decision making, To facilitate caregiver knowledge, To improve self management, To prevent re- injury, To improve ability to perform tasks related to life management, To improve tolerance to ADL's Therapeutic Exercise to Include: Strength training, Power training, Endurance training, Balance training, Postural training, Flexibilty training, Gait and locomotor training, Passive ROM, Active ROM For the Purpose of:: To decrease pain, To decrease swelling/inflammation, To increase ROM, To improve nutrient delivery to tissue, To increase oxygenation perfusion, To improve muscle performance and motor function, To improve ability to perform ADL's, To improve gait and locomotor functions, To improve health of tissue, To decrease soft tissue restriction, To increase flexibility/ROM, To improve endurance, To improve balance, To improve safety with gait Cryotherapy (ice pack, ice massage): Yes Vasopneumatic device: Yes For the Purpose of:: To decrease pain, To decrease swelling/inflammation, To increase ROM, To improve nutrient delivery to tissue, To increase oxygenation perfusion, To improve muscle performance and motor function Thank you for the opportunity to evaluate your patient. For Medicare and Medicare HMO plans, please review the plan of care and approve it. It will need to be FAXED BACK to us at [phone] for Medicare purposes. For Medicare only, by signing this I certify the plan of care. Please let me know if there are questions or concerns regarding this plan of care. Physician Signature: Date :
--- NOTE | 2019-09-22 08:31 | HP.PTREVAL_ITS ---
Dr. Sotero Holden, DO, It has been my pleasure to treat TICO GONZALES over the last 10 visits for R TKA. Please see the progress note below for an update on the physical therapy plan of care! Subjective: Pt. reports I am a little sore today, but not terrible. She had been doing better, but reports feeling a bit more swollen today. Pt. arrives walking with quad cane today with proper use. I did adjust for fitting. Pt. reports being HEP compliant and icing x3 daily. Pt. is wearing her compression stocking on her RLE today. Objective/Function: ROM: 0-0-106deg. Pt. has increased soreness with end ranges, mostly with flexion. MMT 4+/5 throughout. GAIT: pt. has normal pattern with FWW, pt. has good pattern with quad cane, but is a bit more hesitant with walking, pt. reports beign careful when she is walking with the quad cane. STAIRS: Pt. to is able to complete ascending with reciprocal pattern with 1 HR, descending she is able to complete with 2 HR, but has increased soreness with loaded RLE positions. Plan Plan: I am requesting x2 per week for 3, then x1 per week for 2 more weeks (total of 8 more visits) more weeks in order to progress further flexion and progress ambulation. Cont. to work on flexion and tolerance with extension. Progress functional strengthening and stability during gait with and without AD. Goals Goal 1:: LTG: PT. to be I with HEP. Goal Time Frame: 6-8 Weeks Goal Progress: Progressing Goal 2:: STG: Pt. to sleep throughout the night without increase in symptoms. Goal Time Frame: 4-6 Weeks Goal Progress: Progressing Goal 3:: LTG: Pt. to ambulate without AD unlimited distances with normal gait pattern. Goal Time Frame: 6-8 Weeks Goal Progress: Progressing Goal 4:: STG: pt. to have 0-0-120deg of R knee ROM. Goal Time Frame: 4-6 Weeks Goal Progress: Progressing Goal 5:: LTG: Pt. to negotite 1 flight of steps with 1 HR with reciprocal pattern. Goal Time Frame: 6-8 Weeks Goal Progress: Progressing Goal 6:: LTG: pt. to have increased RLE strength by 1/2 grade of all effected musculature. Goal Progress: Progressing Anticipated Interventions Patient/Client Instruction: Educate patient on: Condition, Plan of Care, Risk Factors, Benefits of Fitness Program For the Purpose of:: To foster healthy habits, To improve decision making, To facilitate caregiver knowledge, To improve self management, To prevent re- injury, To improve ability to perform tasks related to life management, To improve tolerance to ADL's Therapeutic Exercise to Include: Strength training, Power training, Endurance training, Balance training, Postural training, Flexibilty training, Gait and locomotor training, Passive ROM, Active ROM For the Purpose of:: To decrease pain, To decrease swelling/inflammation, To increase ROM, To improve nutrient delivery to tissue, To increase oxygenation perfusion, To improve muscle performance and motor function, To improve ability to perform ADL's, To improve gait and locomotor functions, To improve health of tissue, To decrease soft tissue restriction, To increase flexibility/ROM, To improve endurance, To improve balance, To improve safety with gait Cryotherapy (ice pack, ice massage): Yes Vasopneumatic device: Yes For the Purpose of:: To decrease pain, To decrease swelling/inflammation, To increase ROM, To improve nutrient delivery to tissue, To increase oxygenation perfusion, To improve muscle performance and motor function Please do not hesitate to contact me at [phone] by phone or if you have questions or concerns regarding this new plan of care! Sincerely, Devyn Duke DPT
--- NOTE | 2019-10-24 11:22 | HP.PTREVAL_ITS ---
Dr. Sotero Holden, DO, It has been my pleasure to treat TICO GONZALES over the last 13 visits for R TKA. Please see the progress note below for an update on the physical therapy plan of care! Subjective: Pt. reprots being a little more sore today. Pt. reports no new symptoms. Pt. has been HEP compliant. Objective/Function: Pt. was able to achive 117deg of flexion this date in supine AAROm. AROM 110deg. Pt. reports pain as limiting factor, I would be able to push further. No hard end feel felt. Pt. contiunes to pogress. Pt. is walking without AD and is overall improving. Pt. reports having intermittent edema, but is slowly progressing here as well. I would like her to have a bit more flexion prior to DC. Plan Plan: I am asking for a few more visits wtih focus on end range flexion, she is almost there, but I would like her to be at 120deg prior to finishing PT. I am requesting 4 more visits this date. Goals Goal 1:: LTG: PT. to be I with HEP. Goal Time Frame: 6-8 Weeks Goal Progress: Progressing Goal 2:: STG: Pt. to sleep throughout the night without increase in symptoms. Goal Time Frame: 4-6 Weeks Goal Progress: Progressing Goal 3:: LTG: Pt. to ambulate without AD unlimited distances with normal gait pattern. Goal Time Frame: 6-8 Weeks Goal Progress: Progressing Goal 4:: STG: pt. to have 0-0-120deg of R knee ROM. Goal Time Frame: 4-6 Weeks Goal Progress: Progressing Goal 5:: LTG: Pt. to negotite 1 flight of steps with 1 HR with reciprocal pattern. Goal Time Frame: 6-8 Weeks Goal Progress: Progressing Goal 6:: LTG: pt. to have increased RLE strength by 1/2 grade of all effected musculature. Goal Progress: Progressing Anticipated Interventions Patient/Client Instruction: Educate patient on: Condition, Plan of Care, Risk Factors, Benefits of Fitness Program For the Purpose of:: To foster healthy habits, To improve decision making, To facilitate caregiver knowledge, To improve self management, To prevent re- injury, To improve ability to perform tasks related to life management, To improve tolerance to ADL's Therapeutic Exercise to Include: Strength training, Power training, Endurance training, Balance training, Postural training, Flexibilty training, Gait and locomotor training, Passive ROM, Active ROM For the Purpose of:: To decrease pain, To decrease swelling/inflammation, To increase ROM, To improve nutrient delivery to tissue, To increase oxygenation perfusion, To improve muscle performance and motor function, To improve ability to perform ADL's, To improve gait and locomotor functions, To improve health of tissue, To decrease soft tissue restriction, To increase flexibility/ROM, To improve endurance, To improve balance, To improve safety with gait Cryotherapy (ice pack, ice massage): Yes Vasopneumatic device: Yes For the Purpose of:: To decrease pain, To decrease swelling/inflammation, To increase ROM, To improve nutrient delivery to tissue, To increase oxygenation perfusion, To improve muscle performance and motor function Please do not hesitate to contact me at [phone] by phone or if you have questions or concerns regarding this new plan of care! Sincerely, Devyn Duke DPT
--- NOTE | 2019-11-18 14:59 | HP.PTREVAL_ITS ---
Dr. Sotero Holden, DO, It has been my pleasure to treat TICO GONZALES over the last 17 visits for R TKA. Please see the progress note below for an update on the physical therapy plan of care! Subjective: Pt. arrives today without reports of pain. It jsut feels a little stiff. Pt. reports walking her dog earlier without much difficulty. Pt. reports being HEP compliant. Pt. reports ebing 75% better overall, if my pain was better I would be great. Objective/Function: ROM: AROM 0-0-116deg. PROM 0-0-121deg. MMT: 5-/5 throughout without incerase in symptoms throughout RLE. GAIT: Pt. has normal gait pattern without antalgic pattern. Pt. has good knee flexion during swing and good TKE during stance. STAIRS: Pt. is able to negotiate with reciprocal pattern wtih use of 1 HR. Pt. is overall doing well. Pt. is pleased, but still sore at times, I have more good days than bad, but still sore sometimes. I talked to her about h aving some soreness is normal pending previous days activities. I urged her to continue to increase walking to community levels including back to all previous daily activities, pt. consents. Pt. to continue with heel slides with strap over pressure, heel prop for TKE, increase walking and repeative sit to stands to work on functional strengthening. Plan Plan: Pt. to trial exercsies on her own for 2-3 weeks. Pt. to call PT if needed, if no sooner. If I do not hear from her in this time frame I will DC back to physician. Goals Goal 1:: LTG: PT. to be I with HEP. Goal Time Frame: 6-8 Weeks Goal Progress: Goal Met Goal 2:: STG: Pt. to sleep throughout the night without increase in symptoms. Goal Time Frame: 4-6 Weeks Goal Progress: Goal Met Goal 3:: LTG: Pt. to ambulate without AD unlimited distances with normal gait pattern. Goal Time Frame: 6-8 Weeks Goal Progress: Progressing Goal 4:: STG: pt. to have 0-0-120deg of R knee ROM. Goal Time Frame: 4-6 Weeks Goal Progress: Goal Met Goal 5:: LTG: Pt. to negotite 1 flight of steps with 1 HR with reciprocal pattern. Goal Time Frame: 6-8 Weeks Goal Progress: Goal Met Goal 6:: LTG: pt. to have increased RLE strength by 1/2 grade of all effected musculature. Goal Progress: Goal Met Anticipated Interventions Patient/Client Instruction: Educate patient on: Condition, Plan of Care, Risk Factors, Benefits of Fitness Program For the Purpose of:: To foster healthy habits, To improve decision making, To facilitate caregiver knowledge, To improve self management, To prevent re- injury, To improve ability to perform tasks related to life management, To improve tolerance to ADL's Therapeutic Exercise to Include: Strength training, Power training, Endurance training, Balance training, Postural training, Flexibilty training, Gait and locomotor training, Passive ROM, Active ROM For the Purpose of:: To decrease pain, To decrease swelling/inflammation, To increase ROM, To improve nutrient delivery to tissue, To increase oxygenation perfusion, To improve muscle performance and motor function, To improve ability to perform ADL's, To improve gait and locomotor functions, To improve health of tissue, To decrease soft tissue restriction, To increase flexibility/ROM, To improve endurance, To improve balance, To improve safety with gait Cryotherapy (ice pack, ice massage): Yes Vasopneumatic device: Yes For the Purpose of:: To decrease pain, To decrease swelling/inflammation, To increase ROM, To improve nutrient delivery to tissue, To increase oxygenation perfusion, To improve muscle performance and motor function Please do not hesitate to contact me at [phone] by phone or if you have questions or concerns regarding this new plan of care! Sincerely, Devyn Duke DPT
== END 2019-11-18 19:00 | disposition home or self-care (01) ==
LOC: PT 14:00
PROVIDERS: PCP Family Medicine; Referring Provider Orthopaedic Surgery; Visit Provider Orthopaedic Surgery
DX: Z98.890 Other specified postprocedural states (principal)
CPT/HCPCS: 97016; 97110; 97116; 97161; 97164

== ENCOUNTER 2019-11-20 03:22 | Emergency (ER) | payer MEDICARE, SELFPAY ==
[2019-11-06 13:17] VITALS: BMI 36.1
[2019-11-20 03:22] VITALS: BP 145/103; PULSE 85; RESP 18; TEMP 36.1; O2SAT 97; BMI 35.3
[2019-11-20] MEDS: Pramipexole Di-HCl 0.5 MG Tablet PO (03:36)
--- NOTE | 2019-11-20 03:39 | ED.DCSUM_ITS ---
- ER Visit Summary Date of Service: 11/20/19 Chief Complaint: Restless legs History of Present Illness: The patient is a 74 F who presents with restless legs. She states that she ran out of her pramipexole 3 days ago. She states that tonight her legs have been very restless and she cannot sleep. She denies any fever or pain. She states she has a prescription at the pharmacy but she has not allowed to fill it for 2 more days. She denies any falls or trauma. She denies any weakness or numbness of her legs or arms. No headache or neck pain. Physical Examination: Vital signs reviewed. HEENT exam unremarkable. Heart is regular rate and rhythm without murmurs. Lungs are clear to auscultation. Abdomen is soft and nontender. Extremities reveal no edema. Skin exam normal. Neurologic exam normal. Test Results: None performed Emergency Department Course and Treatment: Patient looks very well. She has no neurologic deficits. She ambulated into the emergency department into the bathroom without any difficulties. I will give her her dose of 0.5 mg pramipexole. She is going to call her doctor later today to see if she can fill the prescription early Treatment Plan: [] Disposition: Discharge Impression: Restless legs This note was generated with [employer] dictation software. It may contain incorrect words, spelling, and punctuation that were not noted in review of the chart prior to signing ED Disposition - Plan for ED Patient: Disposition: Home or Assisted Living Instructions: Restless Legs Syndrome: What You Can Do Referrals: Luis Alberto Mccarty, [Primary Care Provider] -
[2019-11-20 03:47] VITALS: BP 142/87; PULSE 88; RESP 16; O2SAT 97
== END 2019-11-20 03:48 | disposition home or self-care (01) ==
PROVIDERS: Emergency Provider Emergency Medicine; PCP Family Medicine
DX: G25.81 Restless legs syndrome (principal); E11.9 Type 2 diabetes mellitus without complications; E78.00 Pure hypercholesterolemia, unspecified
CPT/HCPCS: 99283

== ENCOUNTER → 2019-12-06 11:59 | Outpatient (CLI) | payer MEDICARE, SELFPAY ==
[2019-11-20 03:22] VITALS: BMI 35.3
--- NOTE | 2019-12-06 12:01 | RAD_ITS ---
STUDY: X-RAY - ABDOMEN/PELVIS REASON FOR EXAM: Female, 74 years old. Nausea, diarrhea, recent constipation TECHNIQUE: Abdomen, 2 supine views COMPARISON: None. FINDINGS: Normal visualized lung bases. There is an unremarkable bowel gas pattern. There is no demonstrated free abdominal air. The visualized liver, spleen and kidneys are grossly normal in size and morphology. Normal soft tissue structures. Normal visualized osseous structures. RAD/Abdomen Single View IMPRESSION: Normal x-ray examination of the abdomen and pelvis. Electronically Signed: Aaron Mejia MD at 16:30 EDT , Service support ,
== END ==
PROVIDERS: PCP Family Medicine; Referring Provider Family Medicine; Visit Provider Family Medicine
DX: R11.0 Nausea (principal); K59.00 Constipation, unspecified
CPT/HCPCS: 74018

== ENCOUNTER → 2020-01-09 12:43 | Outpatient (CLI) | payer MEDICARE, SELFPAY ==
[2019-12-18 07:58] VITALS: BMI 35.7
== END ==
PROVIDERS: PCP Family Medicine; Referring Provider Family Medicine; Visit Provider Family Medicine
DX: R19.7 Diarrhea, unspecified (principal)
CPT/HCPCS: 83630; 87177; 87209; 87493; 87506

== ENCOUNTER → 2020-03-18 15:58 | Outpatient (CLI) | payer MEDICARE, SELFPAY ==
[2019-12-18 07:58] VITALS: BMI 35.7
[2020-03-18 18:15] LABS: CRP < 2.90 mg/L (0.0-3.0)
[2020-03-20 16:08] LABS: Endomysial Antibody IgA Negative (Negative)
[2020-03-21 12:48] LABS: Immunoglobulin A 277 mg/dL (64-422); t-Transglutaminase IgA <2 U/mL (0-3)
== END ==
PROVIDERS: PCP Family Medicine; Referring Provider Internal Medicine Gastroenterology; Visit Provider Internal Medicine Gastroenterology
DX: R19.7 Diarrhea, unspecified (principal)
CPT/HCPCS: 36415; 82784; 83516; 86140; 86255

== ENCOUNTER → 2020-06-29 10:29 | Outpatient (CLI) | payer MEDICARE, SELFPAY ==
[2020-06-29 12:05] LABS: Absolute Lymphocyte Count 1.19 X10^3/uL (0.83-4.51); Absolute Neutrophil Count 2.6 X10^3/uL (2.0-7.7); Basophil# 0.02 X10^3/uL; Basophil% 0.5 % (0-1); Eosinophil# 0.09 X10^3/uL; Eosinophils% 2.1 % (0-5); Hematocrit 35.9 % (37-47); Hemoglobin 11.8 g/dL (12.0-15.0); Lymphocyte # 1.19 X10^3/ul (4.0); Lymphocyte % 27.5 % (19-41); Mean Corp Hgb Conc 32.9 g/dL (32-36); Mean Corpuscular Hgb 31.1 pg (27.0-32.0); Mean Corpuscular Volume 94.7 fL (81-99); Mean Platelet Vol. 9.7 fl (6.2-12.0); Monocyte% 9.2 % (0-10); NRBC Flagged by Analyzer 0 % (0-5); Neutrophil # 2.61 X10^3/uL (2.7-7.7); Neutrophil % 60.2 % (47-70); Platelet Count 230 K/mm3 (150-450); RBC Distribution Width CV 11.9 % (11.6-14.6); RBC Distribution Width SD 40.7 fl (35.1-43.9); Red Blood Count 3.79 M/mm3 (4.2-5.4); White Blood Count 4.3 K/mm3 (4.4-11.0)
[2020-06-29 12:20] LABS: Vitamin D,25 Hydroxy 44.7 ng/mL
[2020-06-29 12:51] LABS: ALB/GLOB Ratio 0.9 RATIO (0.9-2.4); AST(SGOT) 19 U/L (15-37); Alanine Aminotransfer ALT/SGPT 37 U/L (13-56); Albumin, Serum 3.5 g/dL (3.2-5.0); Alkaline Phosphatase 98 U/L (45-117); Anion Gap 8 (5-15); BUN 21 mg/dL (7-18); BUN/Creat Ratio 26.2 RATIO (10-20); Chloride 103 mmol/L (98-107); Cholesterol 128 mg/dL (200); EST Glomerular Filtration Rate 74 mL/min (>60); Est Glom Filt Rate - Afr Amer 90 mL/min (>60); Globulin 3.8 g/dL (2.2-4.2); Glucose 138 mg/dL (74-106); High Density Lipoprotein 44 mg/dL; Potassium 3.8 mmol/L (3.5-5.1); Protein, Total 7.3 g/dL (6.4-8.2); Sodium Level 139 mmol/L (136-145); T4 Free Direct 0.86 ng/dL (0.76-1.46); Thyroid Stim Hormone (TSH) 3.65 uIU/mL (0.358-3.74); Triglycerides 133 mg/dL; Very Low Density Lipoprotein 27 mg/dL (5-40)
[2020-06-29 12:54] LABS: Microalbumin:Creatinine Ratio 12.6 mg/g CRE (<30 mg/g CRE)
== END ==
PROVIDERS: PCP Family Medicine; Referring Provider Family Medicine; Visit Provider Family Medicine
DX: E11.51 Type 2 diabetes mellitus with diabetic peripheral angiopathy without gangrene (principal); I70.0 Atherosclerosis of aorta; E78.5 Hyperlipidemia, unspecified; M81.0 Age-related osteoporosis without current pathological fracture; R79.89 Other specified abnormal findings of blood chemistry; Z51.81 Encounter for therapeutic drug level monitoring
CPT/HCPCS: 36415; 80053; 80061; 82043; 82306; 82570; 83036; 84439; 84443; 85025

== ENCOUNTER → 2020-07-08 13:45 | Outpatient (CLI) | payer MEDICARE, SELFPAY ==
[2019-12-11 16:19] VITALS: BMI 35.7
--- NOTE | 2020-07-08 13:48 | BI_ITS ---
MAMMOGRAPHY - BILATERAL SCREENING REASON FOR EXAM: Female, 75 years old. Routine annual screening examination. PERTINENT HISTORY: Non-contributory. TECHNIQUE: Digital bilateral breast cayetano (3D mammographic acquisition) in the CC and MLO projections. 2-D mediolateral oblique (MLO) and craniocaudad (CC) views of both breasts were obtained. CAD: Full Field Digital Mammography with Computer Added Detection was performed. COMPARISON: Comparison is made with prior outside examination dated 02/12/2019 and 10/01/2015. FINDINGS: Breast Composition: The breasts are almost entirely fatty. There are no dominant masses or suspicious calcifications. Stable benign-appearing bilateral calcifications. No other significant abnormalities are identified. There has been no significant change since the prior study. BI/SCRN MAMM (CAD)W/CAYETANO BILAT IMPRESSION: Stable bilateral screening mammogram. Yearly follow-up mammogram recommended. (A) ASSESSMENT CATEGORY: BIRADS Category 2: Benign. A letter regarding these results will be sent to the patient by the facility within 30 days. Approximately 10% of breast cancers are not detected by mammography. A normal mammogram should not delay biopsy of a clinically suspicious abnormality. [id number] Electronically Signed: Eduardo Antunez MD at 12:29 EDT , Service support ,
== END ==
PROVIDERS: PCP Family Medicine; Referring Provider Family Medicine; Visit Provider Family Medicine
DX: Z12.31 Encounter for screening mammogram for malignant neoplasm of breast (principal)
CPT/HCPCS: 77063; 77067

== ENCOUNTER → 2020-07-21 10:00 | Outpatient (CLI) | payer MEDICARE, SELFPAY | PROVIDERS: PCP Family Medicine; Referring Provider Family Medicine; Visit Provider Family Medicine | DX: G47.33 Obstructive sleep apnea (adult) (pediatric) (principal) | CPT/HCPCS: 95806 ==

== ENCOUNTER → 2020-08-19 13:56 | Outpatient (CLI) | payer MEDICARE, SELFPAY ==
[2020-08-10 07:54] VITALS: BMI 38.6
--- NOTE | 2020-08-19 13:58 | CT_ITS ---
STUDY: LOW DOSE CT LUNG CANCER SCREENING REASON FOR EXAM: Female, 75 years old. Smoking and gt; 40 pack years, quit 8 yrs ago RADIATION DOSAGE (If Supplied By Facility): CTDIvol = ( 3.02 ) mGy, DLP = ( 88.75 ) mGycm TECHNIQUE: No contrast was administered. Low dose technique was utilized (average mAS-38 and kVp 120). 1.25 mm axial source images with a slice interval of 1.25-mm were reconstructed in lung windows. 2.5 mm axial source images with a slice interval of 2.5-mm were reconstructed in lung windows. 5.0 mm axial source images with a slice interval of 5.0-mm were reconstructed in soft tissue windows. Nodule measured using lung windows on PACS and/or independent workstation with automated measurement of minimum and maximum diameter. Nodule measurement reported as average diameter rounded to the nearest whole number. Growth is defined as an increase ins size of greater than 1.5 mm. COMPARISON: None. NODULES: No suspicious nodules are seen. Emphysema: Mild degree of emphysematous changes. Mild scarring at the lung bases. Endobronchial lesion: None Aorta: Mild atherosclerotic plaque formation of the aortic arch. Coronary arteries: Coronary artery calcification. Heart: Unremarkable Pulmonary artery: Unremarkable Mediastinal nodes: Small mediastinal lymph nodes. Other chest and abdominal findings: Degenerative changes of the thoracic spine. CT/Low Dose CT Lung Screening IMPRESSION: Lung-RADS category 2 - Continue annual screening with LDCT in 12 months. IMPORTANT NOTES FOR USE: ACR Lung-RADS Version 1.1 Assessment Categories Release Date: 2018 Category: Coded 0-4 bases on nodule(s) with highest degree of suspicion. Negative screen is defined as categories 1 and 2; a positive screen is defined as categories 3 and 4. Category 3 and 4A nodules that are unchanged on interval CT should be coded as category 2, and individuals returned to screening in 12 months. Category 4X: Category 3 or 4 nodules with additional imaging findings that increase the suspicion of lung cancer, such as spiculation, GGN that doubles in size in 1 year, enlarged lymph notes, etc. Category Modifiers: S (significant finding unrelated to lung cancer) Electronically Signed: Eduardo Antunez MD at 14:28 EDT , Service support ,
== END ==
PROVIDERS: PCP Family Medicine; Referring Provider Nurse Practitioner Acute Care; Visit Provider Nurse Practitioner Acute Care
DX: Z12.2 Encounter for screening for malignant neoplasm of respiratory organs (principal); F17.210 Nicotine dependence, cigarettes, uncomplicated
CPT/HCPCS: 71271

== ENCOUNTER 2021-07-09 14:43 | Outpatient (CLI) | payer MEDICARE, SELFPAY ==
--- NOTE | 2021-07-09 14:45 | BI_ITS ---
MAMMOGRAPHY - BILATERAL SCREENING REASON FOR EXAM: Female, 76 years old. Routine annual screening examination. PERTINENT HISTORY: Non-contributory. TECHNIQUE: Digital bilateral breast cayetano (3D mammographic acquisition) in the CC and MLO projections. 2-D mediolateral oblique (MLO) and craniocaudad (CC) views of both breasts were obtained. CAD: Full Field Digital Mammography with Computer Added Detection was performed. COMPARISON: Comparison is made with prior study 07/08/2020 and 10/01/2015. FINDINGS: Breast Composition: The breasts are almost entirely fatty. There are no dominant masses or suspicious calcifications. Stable benign-appearing bilateral calcifications. No other significant abnormalities are identified. There has been no significant change since the prior study. BI/SCRN MAMM (CAD)W/CAYETANO BILAT IMPRESSION: Stable bilateral screening mammogram. Yearly follow-up mammogram recommended. (A) ASSESSMENT CATEGORY: BIRADS Category 2: Benign. A letter regarding these results will be sent to the patient by the facility within 30 days. Approximately 10% of breast cancers are not detected by mammography. A normal mammogram should not delay biopsy of a clinically suspicious abnormality. [id number] Electronically Signed: Eduardo Antunez MD at 8:25 EDT ,
== END 2021-07-09 23:59 | disposition home or self-care (01) ==
LOC: OPBI 14:45
PROVIDERS: PCP Family Medicine; Visit Provider Family Medicine
DX: Z12.31 Encounter for screening mammogram for malignant neoplasm of breast (principal)
CPT/HCPCS: 77063; 77067

== ENCOUNTER → 2021-08-18 | Outpatient (CLI) | payer MEDICARE, SELFPAY ==
[2021-08-18 10:11] LABS: Absolute Lymphocyte Count 1.37 X10^3/uL (0.83-4.51); Absolute Neutrophil Count 2.9 X10^3/uL (2.0-7.7); Basophil# 0.03 X10^3/uL; Basophil% 0.6 % (0-1); Eosinophil# 0.09 X10^3/uL; Eosinophils% 1.9 % (0-5); Hemoglobin 11.9 g/dL (12.0-15.0); Lymphocyte # 1.37 X10^3/ul (0.83-4.51); Lymphocyte % 28.3 % (19-41); Mean Corp Hgb Conc 33.1 g/dL (32-36); Mean Corpuscular Hgb 31.6 pg (27.0-32.0); Mean Corpuscular Volume 95.5 fL (81-99); Mean Platelet Vol. 9.1 fl (6.2-12.0); Monocyte% 8.3 % (0-10); NRBC Flagged by Analyzer 0 % (0-5); Neutrophil # 2.94 X10^3/uL (2.7-7.7); Neutrophil % 60.7 % (47-70); Platelet Count 189 K/mm3 (150-450); RBC Distribution Width SD 41.5 fl (35.1-43.9); Red Blood Count 3.77 M/mm3 (4.2-5.4); White Blood Count 4.8 K/mm3 (4.4-11.0)
[2021-08-18 10:25] LABS: Vitamin D,25 Hydroxy 38.2 ng/mL
[2021-08-18 10:34] LABS: Microalbumin,Random Urine 9.1 mg/L (NO RANGE EST.); Microalbumin:Creatinine Ratio 6.5 mg/g CRE (<30 mg/g CRE)
[2021-08-18 10:41] LABS: ALB/GLOB Ratio 0.8 RATIO (0.9-2.4); AST(SGOT) 14 U/L (15-37); Alanine Aminotransfer ALT/SGPT 29 U/L (13-56); Albumin, Serum 3.3 g/dL (3.2-5.0); Alkaline Phosphatase 98 U/L (45-117); Anion Gap 3 (5-15); BUN 19 mg/dL (7-18); BUN/Creat Ratio 24.9 RATIO (10-20); Calcium,Total 8.8 mg/dL (8.5-10.1); Chloride 107 mmol/L (98-107); Cholesterol 174 mg/dL (200); Creatinine, Serum 0.76 mg/dL (0.55-1.02); EST Glomerular Filtration Rate 78 mL/min (>60); Est Glom Filt Rate - Afr Amer 95 mL/min (>60); Globulin 3.9 g/dL (2.2-4.2); Glucose 177 mg/dL (74-106); High Density Lipoprotein 46 mg/dL; Potassium 3.8 mmol/L (3.5-5.1); Protein, Total 7.2 g/dL (6.4-8.2); Sodium Level 141 mmol/L (136-145); T4 Free Direct 0.75 ng/dL (0.76-1.46); Thyroid Stim Hormone (TSH) 2.44 uIU/mL (0.358-3.74); Triglycerides 153 mg/dL; Very Low Density Lipoprotein 31 mg/dL (5-40)
== END | disposition home or self-care (01) ==
LOC: MTLAB 08:52
PROVIDERS: PCP Family Medicine; Referring Provider Family Medicine; Visit Provider Family Medicine
DX: E11.51 Type 2 diabetes mellitus with diabetic peripheral angiopathy without gangrene (principal); I70.0 Atherosclerosis of aorta; E78.5 Hyperlipidemia, unspecified; M81.0 Age-related osteoporosis without current pathological fracture; R79.89 Other specified abnormal findings of blood chemistry
CPT/HCPCS: 80053; 80061; 82043; 82306; 82570; 84439; 84443; 85025

== ENCOUNTER → 2021-09-13 | Outpatient (CLI) | payer MEDICARE, SELFPAY ==
--- NOTE | 2021-09-13 17:00 | MRI_ITS ---
STUDY: MR Spine Lumbar W/O Contrast 09/13/2021 9:56 PM REASON FOR EXAM: Female, 76 years old. Back pain pain in lower back TECHNIQUE: MR Spine Lumbar W/O Contrast Standardized fat and water weighted pulse sequences were obtained. COMPARISON: 08.27.21 xr FINDINGS: T12-L1: Normal endplates. Normal disc height, hydration and morphology. Normal bilateral facet joints. Normal central canal and bilateral lateral recesses. Normal bilateral intervertebral neural foramina. Normal lumbar lordosis. There is no substantial scoliosis. Normal conus medullaris that terminates at the L1. L1-2: Loss of intervertebral disc height. There is endplate spondylosis of the vertebral body. Normal central canal and intervertebral neuroforamina. There is bilateral facet arthropathy. Disc desiccation. Minimal posterior disc bulge. L2-3: Loss of intervertebral disc height. There is endplate spondylosis of the vertebral body. Normal central canal and intervertebral neuroforamina. There is bilateral facet arthropathy. Disc desiccation. Minimal posterior disc bulge. L3-4: Loss of intervertebral disc height. There is endplate spondylosis of the vertebral body. Normal central canal and intervertebral neuroforamina. There is bilateral facet arthropathy. Disc desiccation. Minimal posterior disc bulge. L4-5: Loss of intervertebral disc height. There is endplate spondylosis of the vertebral body. Normal central canal and intervertebral neuroforamina. There is bilateral facet arthropathy. Disc desiccation. Minimal posterior disc bulge. L5-S1: Loss of intervertebral disc height. There is endplate spondylosis of the vertebral body. Normal central canal and intervertebral neuroforamina. There is bilateral facet arthropathy. Disc desiccation. Minimal posterior disc bulge. Normal visualized sacral ala. Normal visualized paraspinous soft tissue structures. MRI/Spine Lumbar (Routine) IMPRESSION: Multilevel degenerative changes, as described above. Electronically Signed: Ta Garg MD at 21:58 EDT ,
== END | disposition home or self-care (01) ==
PROVIDERS: PCP Family Medicine; Visit Provider Orthopaedic Surgery
DX: M54.50 Low back pain, unspecified (principal); G89.29 Other chronic pain
CPT/HCPCS: 72148

== ENCOUNTER → 2022-07-15 | Outpatient (CLI) | payer MEDICARE, SELFPAY ==
--- NOTE | 2022-07-15 12:30 | BI_ITS ---
MAMMOGRAPHY - BILATERAL SCREENING REASON FOR EXAM: Female, 77 years old. Routine annual screening examination. PERTINENT HISTORY: Non-contributory. TECHNIQUE: Digital bilateral breast cayetano (3D mammographic acquisition) in the CC and MLO projections. 2-D mediolateral oblique (MLO) and craniocaudad (CC) views of both breasts were obtained. CAD: Full Field Digital Mammography with Computer Added Detection was performed. COMPARISON: Comparison is made with prior study dated July 09, 2021 and July 08, 2020. FINDINGS: Breast Composition: The breasts are almost entirely fatty. There are no dominant masses or suspicious calcifications. Stable benign-appearing bilateral calcifications most likely skin calcifications. No other significant abnormalities are identified. There has been no significant change since the prior study. BI/SCRN MAMM (CAD)W/CAYETANO BILAT IMPRESSION: Stable bilateral screening mammogram. Yearly follow-up mammogram recommended. (A) ASSESSMENT CATEGORY: BIRADS Category 2: Benign. A letter regarding these results will be sent to the patient by the facility within 30 days. Approximately 10% of breast cancers are not detected by mammography. A normal mammogram should not delay biopsy of a clinically suspicious abnormality. [id number] Electronically Signed: Eduardo Antunez MD at 13:40 EDT ,
== END | disposition home or self-care (01) ==
LOC: OPBI 12:28
PROVIDERS: PCP Family Medicine; Referring Provider Family Medicine; Visit Provider Family Medicine
DX: Z12.31 Encounter for screening mammogram for malignant neoplasm of breast (principal)
CPT/HCPCS: 77063; 77067

== ENCOUNTER → 2022-08-10 | Outpatient (CLI) | payer MEDICARE, SELFPAY ==
[2022-08-10 10:17] LABS: Microalbumin:Creatinine Ratio 16.2 mg/g CRE (<30 mg/g CRE)
[2022-08-10 10:28] LABS: Vitamin D,25 Hydroxy 45.4 ng/mL
[2022-08-10 10:33] LABS: ALB/GLOB Ratio 0.8 RATIO (0.9-2.4); AST(SGOT) 26 U/L (15-37); Alanine Aminotransfer ALT/SGPT 33 U/L (13-56); Albumin, Serum 3.2 g/dL (3.2-5.0); Alkaline Phosphatase 117 U/L (45-117); Anion Gap 3 (5-15); BUN 15 mg/dL (7-18); BUN/Creat Ratio 20.9 RATIO (10-20); Chloride 107 mmol/L (98-107); Cholesterol 178 mg/dL (200); Creatinine, Serum 0.72 mg/dL (0.55-1.02); EST Glomerular Filtration Rate 84 mL/min (>60); Est Glom Filt Rate - Afr Amer 102 mL/min (>60); Globulin 4.2 g/dL (2.2-4.2); Glucose 160 mg/dL (74-106); High Density Lipoprotein 39 mg/dL; Potassium 4.2 mmol/L (3.5-5.1); Protein, Total 7.4 g/dL (6.4-8.2); Sodium Level 139 mmol/L (136-145); T4 Free Direct 0.76 ng/dL (0.76-1.46); Thyroid Stim Hormone (TSH) 2.65 uIU/mL (0.358-3.74); Triglycerides 278 mg/dL; Very Low Density Lipoprotein 56 mg/dL (5-40)
== END | disposition home or self-care (01) ==
LOC: MTLAB 09:12
PROVIDERS: PCP Family Medicine; Referring Provider Internal Medicine Endocrinology, Diabetes & Metabolism; Visit Provider Internal Medicine Endocrinology, Diabetes & Metabolism
DX: E11.65 Type 2 diabetes mellitus with hyperglycemia (principal); M81.0 Age-related osteoporosis without current pathological fracture; E78.2 Mixed hyperlipidemia; E55.9 Vitamin D deficiency, unspecified
CPT/HCPCS: 36415; 80053; 80061; 82043; 82306; 82570; 84439; 84443

== ENCOUNTER → 2023-06-28 | Outpatient (CLI) | payer MEDICARE, SELFPAY ==
--- NOTE | 2023-06-28 17:53 | CT_ITS ---
STUDY: CT CHEST WITH CONTRAST REASON FOR EXAM: Female, 78 years old. LUNG NODULE RADIATION DOSAGE (If Supplied By Facility): CTDIvol = ( 12.52 ) mGy, DLP = ( 573.28 ) mGycm TECHNIQUE: Transaxial imaging was performed following intravenous administration of IV 100mL [id number]-[id number]. Multiplanar coronal and sagittal images were reformatted. Individualized dose optimization techniques were used for this CT. COMPARISON: Comparison is made with prior CT scanner chest dated August 19, 2020. FINDINGS: CHEST No pulmonary nodules are seen. Mild degree of hyperinflation and emphysematous changes as well as mild scarring at the lung bases. There is no demonstrated pleural abnormality. There are calcifications of the coronary arteries. There are small lymph nodes within the mediastinum, which are normal in size and morphology most compatible with reactive lymph hyperplasia. Normal hilar regions. Normal unenhanced pulmonary arteries. Atherosclerotic plaque formation of the aortic arch. There are degenerative changes of the thoracic spine. Contracted gallbladder. Fatty infiltration of the liver. CT/Chest WITH Contrast IMPRESSION: No pulmonary nodules are seen. Mild degree of hyperinflation and emphysematous changes. Electronically Signed: Eduardo Antunez MD at 15:12 EDT ,
[2023-06-28 18:27] LABS: CREATININE FINGERSTICK < 1.0 mg/dL (0.55-1.02); EGFR FINGERSTICK > 60.0000 mL/min (>60)
== END | disposition home or self-care (01) ==
PROVIDERS: PCP Family Medicine; Referring Provider Family Medicine; Visit Provider Family Medicine
DX: R91.1 Solitary pulmonary nodule (principal); Z87.891 Personal history of nicotine dependence
CPT/HCPCS: 71260; Q9967

== ENCOUNTER → 2023-08-10 | Outpatient (CLI) | payer MEDICARE, SELFPAY ==
[2023-08-10 16:17] LABS: Vitamin D,25 Hydroxy 44.8 ng/mL
[2023-08-10 16:23] LABS: ALB/GLOB Ratio 0.8 RATIO (0.9-2.4); AST(SGOT) 19 U/L (15-37); Alanine Aminotransfer ALT/SGPT 30 U/L (13-56); Albumin, Serum 3.3 g/dL (3.2-5.0); Alkaline Phosphatase 86 U/L (45-117); Anion Gap 5 (5-15); BUN 15 mg/dL (7-18); BUN/Creat Ratio 18.5 RATIO (10-20); Chloride 104 mmol/L (98-107); Cholesterol 158 mg/dL (200); Creatinine, Serum 0.81 mg/dL (0.55-1.02); EST Glomerular Filtration Rate 73 mL/min (>60); Est Glom Filt Rate - Afr Amer 88 mL/min (>60); Globulin 3.9 g/dL (2.2-4.2); Glucose 109 mg/dL (74-106); High Density Lipoprotein 52 mg/dL; Potassium 4.2 mmol/L (3.5-5.1); Protein, Total 7.2 g/dL (6.4-8.2); Sodium Level 137 mmol/L (136-145); Thyroid Stim Hormone (TSH) 2.57 uIU/mL (0.358-3.74); Triglycerides 149 mg/dL; Very Low Density Lipoprotein 30 mg/dL (5-40)
[2023-08-10 16:33] LABS: Microalbumin,Random Urine 9.4 mg/L (NO RANGE EST.); Microalbumin:Creatinine Ratio 6.3 mg/g CRE (<30 mg/g CRE)
== END | disposition home or self-care (01) ==
LOC: LAB 15:03
PROVIDERS: PCP Family Medicine; Referring Provider Internal Medicine Endocrinology, Diabetes & Metabolism; Visit Provider Internal Medicine Endocrinology, Diabetes & Metabolism
DX: E11.65 Type 2 diabetes mellitus with hyperglycemia (principal); M81.0 Age-related osteoporosis without current pathological fracture; I10 Essential (primary) hypertension; E78.2 Mixed hyperlipidemia; E66.9 Obesity, unspecified; E55.9 Vitamin D deficiency, unspecified
CPT/HCPCS: 36415; 80053; 80061; 82043; 82306; 82570; 84443

== ENCOUNTER → 2023-09-14 | Outpatient (CLI) | payer MEDICARE, SELFPAY ==
--- NOTE | 2023-09-14 12:51 | BI_ITS ---
MAMMOGRAPHY - BILATERAL SCREENING REASON FOR EXAM: Female, 78 years old. Routine annual screening examination. PERTINENT HISTORY: Non-contributory. TECHNIQUE: Digital bilateral breast cayetano (3D mammographic acquisition) in the CC and MLO projections. 2-D mediolateral oblique (MLO) and craniocaudad (CC) views of both breasts were obtained. CAD: Full Field Digital Mammography with Computer Added Detection was performed. COMPARISON: Comparison is made with prior study dated July 15, 2022 and July 09, 2021. FINDINGS: Breast Composition: The breasts are almost entirely fatty. There are no dominant masses or suspicious calcifications. Stable small benign-appearing bilateral calcified nodules in the breasts. These most likely represent skin calcifications due to their central lucencies. Stable fat-containing bilateral axillary lymph nodes. No other significant abnormalities are identified. There has been no significant change since the prior study. BI/SCRN MAMM (CAD)W/CAYETANO BILAT IMPRESSION: Stable bilateral screening mammogram. Yearly follow-up mammogram recommended. (A) ASSESSMENT CATEGORY: BIRADS Category 2: Benign. A letter regarding these results will be sent to the patient by the facility within 30 days. Approximately 10% of breast cancers are not detected by mammography. A normal mammogram should not delay biopsy of a clinically suspicious abnormality. [id number] Electronically Signed: Eduardo Antunez MD at 14:07 EDT ,
== END | disposition home or self-care (01) ==
LOC: OPBI 12:50
PROVIDERS: PCP Family Medicine; Referring Provider Family Medicine; Visit Provider Family Medicine
DX: Z12.31 Encounter for screening mammogram for malignant neoplasm of breast (principal)
CPT/HCPCS: 77063; 77067

== ENCOUNTER → 2024-09-11 | Outpatient (CLI) | payer MEDICARE, SELFPAY ==
[2024-09-11 10:17] LABS: Microalbumin,Random Urine < 12.0 mg/L (NO RANGE EST.); Microalbumin:Creatinine Ratio UNABLE TO CALCULATE mg/g CRE
[2024-09-11 10:54] LABS: ALB/GLOB Ratio 1.2 RATIO (0.9-2.4); AST(SGOT) 22 U/L (<=31); Alanine Aminotransfer ALT/SGPT 28 U/L (<=34); Albumin, Serum 3.8 g/dL (3.4-4.8); Alkaline Phosphatase 111 U/L (35-104); Anion Gap 12 (5-15); BUN 25 mg/dL (4-19); BUN/Creat Ratio 30.5 RATIO (10-20); Calcium,Total 9.1 mg/dL (7.6-11.0); Carbon Dioxide 25.1 mmol/L (21.0-32.0); Chloride 101 mmol/L (98-108); Cholesterol 156 mg/dL (<=200); Creatinine, Serum 0.82 mg/dL (0.70-1.20); EST Glomerular Filtration Rate 73 (>60); Globulin 3.2 g/dL (2.2-4.2); Glucose 211 mg/dL (70-99); High Density Lipoprotein 50 mg/dL; Low Density Lipoprotein Calc. 87 mg/dL; Potassium 4.2 mmol/L (3.3-5.1); Protein, Total 7.1 g/dL (5.9-8.4); Sodium Level 138 mmol/L (133-145); Triglycerides 98 mg/dL; Very Low Density Lipoprotein 20 mg/dL (5-40); Vitamin D,25 Hydroxy 27.6 ng/mL (30-100); cholesterol:hdl ratio screen 3.13
== END | disposition home or self-care (01) ==
PROVIDERS: PCP Family Medicine; Referring Provider Internal Medicine Endocrinology, Diabetes & Metabolism; Visit Provider Internal Medicine Endocrinology, Diabetes & Metabolism
DX: E11.65 Type 2 diabetes mellitus with hyperglycemia (principal); M81.0 Age-related osteoporosis without current pathological fracture; I10 Essential (primary) hypertension; E78.2 Mixed hyperlipidemia; E55.9 Vitamin D deficiency, unspecified
CPT/HCPCS: 36415; 80053; 80061; 82043; 82306; 82570; 84443

== ENCOUNTER → 2024-09-23 | Outpatient (CLI) | payer MEDICARE, SELFPAY ==
--- NOTE | 2024-09-23 12:58 | BI_ITS ---
EXAM: SCRN MAMM (CAD)W/CAYETANO BILAT DATE: 09/23/2024 CLINICAL HISTORY: F, Age 79 y/o , SCREENING No family history. BREAST CANCER RISK ASSESSMENT: Not assessed. TECHNIQUE: Bilateral screening digital breast tomosynthesis with 2D and 3D images. Computer aided detection. COMPARISON: Prior exam(s) dated September 14, 2023.. FINDINGS: TISSUE DENSITY: The breast tissue is almost entirely fatty. Bilateral Breast Mammographic Findings: No significant masses, calcifications or other abnormalities are identified. Scattered bilateral what appears to be skin calcification. No suspicious masses, areas of developing architectural distortion, or suspicious calcifications. There has been no significant interval change. BI/SCRN MAMM (CAD)W/CAYETANO BILAT IMPRESSION: Stable examination. OVERALL FINAL ASSESSMENT BI-RADS 2: BENIGN RECOMMEND ANNUAL MAMMOGRAPHIC SCREENING. RECOMMENDATION: Routine annual follow-up in 1 Year A letter with findings and recommendations will be mailed to the patient. Reading Location: [place] [id number]
== END | disposition home or self-care (01) ==
LOC: OPBI 12:57
PROVIDERS: PCP Family Medicine; Referring Provider Family Medicine; Visit Provider Family Medicine
DX: Z12.31 Encounter for screening mammogram for malignant neoplasm of breast (principal)
CPT/HCPCS: 77063; 77067